=== PATIENT | male | born 1940 | race Caucasian/White ===

== ENCOUNTER 2018-04-22 05:31 | Day surgery (SDC) | payer OTHER, MEDICARE ==
[~2018-04-22] VITALS: Ht 175.3 cm; Wt 91.6 kg
[~2018-04-22 05:31] MED LIST: CALCIUM 500 +1 EAC5 PO; DUONEB 2.5-0.5 M3 ML PEP; MIRALAX255 GM PO; NASACORT10.8 ML BOTH NARES; SINGULAIR10 MG PO; ZYRTEC10 M3 PO
[2018-04-22 05:47] VITALS: BP 173/81
[2018-04-22 09:21] VITALS: BP 141/67
[2018-04-22 09:59] VITALS: BP 145/79
== END 2018-04-22 10:00 | disposition home or self-care (01) ==
LOC: SDC 05:31
DX: H35.371 Puckering of macula, right eye (principal); G47.33 Obstructive sleep apnea (adult) (pediatric); J45.30 Mild persistent asthma, uncomplicated; Z86.718 Personal history of other venous thrombosis and embolism
CPT/HCPCS: J0690; J0713; J2250; J2405; J2795; J3300